=== PATIENT | male | born 1980 | race Caucasian/White ===

== ENCOUNTER 2018-04-07 11:19 | Emergency (ER) | payer OTHER ==
[~2018-04-07] VITALS: Ht 175.3 cm; Wt 72.6 kg
[2018-04-07] MEDS ORDERED: VENTOLIN HFA18 GM INH (11:45)
[2018-04-07] MEDS ORDERED: KETOROLAC TROME10 MG PO (12:01)
== END 2018-04-07 12:10 | disposition home or self-care (01) ==
LOC: ED 11:19
DX: S93.401A Sprain of unspecified ligament of right ankle, initial encounter (principal); X58.XXXA Exposure to other specified factors, initial encounter
CPT/HCPCS: 73610; 99283